=== PATIENT | male | born 1955 | race Caucasian/White ===

== ENCOUNTER 2023-08-05 15:35 | Emergency (ER) | payer OTHER, MEDICARE ==
[~2023-08-05] VITALS: Ht 185.4 cm; Wt 106.6 kg
[~2023-08-05 15:35] MED LIST: ALBMDI INH; AZIT500T PO; METH-776 PO
[2023-08-05 16:00] VITALS: BP_SYST 158; PULSE 113; RESP 18; TEMP 97.5; O2SAT 97
[2023-08-05 19:47] LABS: WHITE BLOOD COUNT (AUTO) 6.8 K/uL (4.8-10.8)
[2023-08-05 19:56] LABS: BASOPHILS % (AUTO) 0.1 % (0.0-2.0); EOSINOPHILS % (AUTO) 0.1 % (0.0-4.0); HEMOGLOBIN 14.3 g/dL (14.0-18.0); LYMPHOCYTES # (AUTO) 1.3 K/uL (1.0-5.5); MEAN CORPUSCULAR HEMOGLOBIN 30 pg (27-31); MEAN CORPUSCULAR HGB CONC 35 % (32-36); MEAN CORPUSCULAR VOLUME 85 fL (79.0-98.0); MONOCYTES # (AUTO) 0.4 K/uL (0.0-1.0); MONOCYTES % (AUTO) 5.4 % (1.7-9.3); NEUTROPHILS # (AUTO) 5.1 K/uL (1.8-7.7); NEUTROPHILS % (AUTO) 75.4 % (40.0-70.0); PLATELET COUNT (AUTO) 318 K/uL (130-430); RED BLOOD CELL COUNT(AUTO) 4.82 MIL/uL (4.2-6.2)
[2023-08-05 19:58] LABS: ERYTHROCYTE SEDIMENTATION RATE 5 MM/HR (0-15)
[2023-08-05 20:15] LABS: ANION GAP 15 (5-15); CALCIUM 9.8 mg/dL (8.4-11.0); CARBON DIOXIDE 20 mmol/L (23-29); CHLORIDE 93 mmol/L (98-107); CREATININE 0.99 mg/dL (0.55-1.30); GFR AFRICAN AMERICAN 98 mL/min (>90); GFR NON AFRICAN-AMERICAN 81 mL/min (>90); GLUCOSE 122 mg/dL (74-106); POTASSIUM 3.8 mmol/L (3.5-5.1); SODIUM SERUM 128 mmol/L (136-145); UREA NITROGEN, BLOOD 10 mg/dL (8-21)
[2023-08-05 20:51] VITALS: BP_SYST 161; PULSE 90; RESP 20; TEMP 97.6; O2SAT 98
== END 2023-08-05 20:51 | disposition home or self-care (01) ==
LOC: SED 15:35
DX: J20.9 Acute bronchitis, unspecified (principal); E87.1 Hypo-osmolality and hyponatremia; E86.0 Dehydration; Z88.1 Allergy status to other antibiotic agents; Z88.8 Allergy status to other drugs, medicaments and biological substances; Z79.899 Other long term (current) drug therapy
CPT/HCPCS: 36415; 80048; 83880; 84484; 85025; 85379; 85651; 93005; 99284

== ENCOUNTER → 2023-08-11 | Emergency (ER) | payer OTHER, MEDICARE ==
[~2023-08-11] VITALS: Ht 180.3 cm; Wt 99.8 kg
[~2023-08-11] MED LIST changes: +ALBU2.5V7 INH; +BUDE0.5A INH
[2023-08-11 21:00] VITALS: BP_SYST 84; PULSE 104; RESP 20; TEMP 97.6; O2SAT 98
[2023-08-11] MEDS: IPRATROPIUM/ALBUTEROL SULFATE 3 ML AMPUL.NEB (DUONEB) INH ONE (21:30)
[2023-08-11] MEDS: BUDESONIDE 0.5 MG/2 ML AMPUL.NEB INH ONE (21:31)
[2023-08-11 21:46] VITALS: BP_SYST 130; PULSE 69; RESP 19; TEMP 97.6
[2023-08-11 21:52] VITALS: O2SAT 98
== END | disposition home or self-care (01) ==
LOC: SED 20:54
DX: J45.901 Unspecified asthma with (acute) exacerbation (principal); R06.02 Shortness of breath; Z88.1 Allergy status to other antibiotic agents
CPT/HCPCS: 94640; 94760; 99284; J7626